=== PATIENT | male | born 1990 | race Caucasian/White ===

== ENCOUNTER 2017-10-31 12:43 | Emergency (ER) | payer MEDICARE, MEDICAID ==
[2017-10-31] MEDS ORDERED: Ketorolac Tromethamine 30 MG/ML VIAL ONE (13:46)
--- NOTE | 2017-10-31 14:05 | RAD ---
LEFT KNEE 4 VIEWS: Date: 10/31/17 HISTORY: Injury. Left knee pain. FINDINGS/IMPRESSION: No acute fracture or dislocation is identified. No joint effusion is seen. POS: [facility]
== END 2017-10-31 14:19 | disposition home or self-care (01) ==
LOC: ERS 12:43
DX: M25.562 Pain in left knee (principal); F84.5 Asperger's syndrome; F17.210 Nicotine dependence, cigarettes, uncomplicated
CPT/HCPCS: 96372; J1885

== ENCOUNTER 2018-03-04 18:22 | Emergency (ER) | payer MEDICARE, MEDICAID ==
[2018-03-04] MEDS ORDERED: Ibuprofen 800 MG TAB ONE (18:49)
[2018-03-04] MEDS ORDERED: Adacel (T-DAP) 0.5 ML VIAL ONE (18:49)
[2018-03-04] MEDS ORDERED: HYDROcodone/Acetaminophen 5/325 mg Tablet ONE (18:49)
--- NOTE | 2018-03-04 18:59 | RAD ---
3 VIEWS RIGHT HAND: Date: 03/04/18 COMPARISON: None. HISTORY: Dog bite to the right hand and forearm. FINDINGS: Three views of the right hand show no evidence of acute fracture or dislocation. No radiopaque foreig n body is seen. No degenerative changes are present. IMPRESSION: No evidence of acute osseous abnormality. POS: [facility]
[2018-03-04] MEDS ORDERED: Bacitracin Zinc 1 Packet ONE (19:33)
[2018-03-04] MEDS ORDERED: Amoxicillin/Potassium Clav 875 MG TAB ONE (19:34)
== END 2018-03-04 19:45 | disposition home or self-care (01) ==
LOC: SCSER 18:22
DX: S41.151A Open bite of right upper arm, initial encounter (principal); F31.9 Bipolar disorder, unspecified; W54.0XXA Bitten by dog, initial encounter
CPT/HCPCS: 90471; 90715

== ENCOUNTER 2018-03-05 21:13 | Emergency (ER) | payer MEDICARE, OTHER ==
[2018-03-05] MEDS ORDERED: Ketorolac Tromethamine 60 MG/2 ML VIAL ONE (21:58)
[2018-03-05] MEDS ORDERED: Bacitracin Zinc 1 Packet ONE (22:28)
== END 2018-03-05 22:41 | disposition home or self-care (01) ==
LOC: ERS 21:13
DX: S61.250D Open bite of right index finger without damage to nail, subsequent encounter (principal); F31.9 Bipolar disorder, unspecified; W54.0XXD Bitten by dog, subsequent encounter
CPT/HCPCS: 96372; J1885

== ENCOUNTER 2018-07-30 11:39 | Emergency (ER) | payer MEDICARE, MEDICAID ==
--- NOTE | 2018-07-30 12:53 | RAD ---
THREE VIEWS LEFT HAND: Comparison: None. History: Left hand pain. FINDINGS: Three views of the left hand shows no evidence of acute fracture or dislocation. No degenerative jessica ges are seen. IMPRESSION: No evidence of acute osseous abnormality. POS: [facility]
--- NOTE | 2018-07-30 13:28 | CT ---
CT OF HEAD NONCONTRAST: INDICATION: Trauma. COMPARISON: 05/19/2008. FINDINGS: There is no evidence of ventriculomegaly, mass effect, or midline shift. There is ramone cisterna magn a with bilateral mastoid opacification. IMPRESSION: 1. No acute intracranial hemorrhage or mass effect. 2. Bilateral mastoid opacification. POS: [facility]
== END 2018-07-30 12:19 | disposition home or self-care (01) ==
LOC: ERS 11:39
DX: S60.512A Abrasion of left hand, initial encounter (principal); F31.9 Bipolar disorder, unspecified; F17.210 Nicotine dependence, cigarettes, uncomplicated; Z71.6 Tobacco abuse counseling; Y08.09XA Assault by strike by other specified type of sport equipment, initial encounter; Y93.67 Activity, basketball; Y99.8 Other external cause status
CPT/HCPCS: 70450; 99406

== ENCOUNTER 2018-09-11 08:38 | Emergency (ER) | payer MEDICARE, MEDICAID ==
[2018-09-11 09:11] LABS: #Eosinphils 0.2 thou/uL (0.0-0.7); #Lymphocytes 1.7 thou/uL (1.20-3.40); #Monocytes 0.7 thou/uL (0.11-0.59); #Neutrophils 3.7 thou/uL (1.40-6.50); %Basophils 0.6 % (0.0-1.0); %Eosinophils 2.5 % (0.0-10.0); %Lymphocytes 26.8 % (21.0-51.0); %Monocytes 10.5 % (0.0-10.0); %Neutrophils 59.7 % (42.0-75.0); Hemoglobin 16.1 g/dL (14.0-18.0); Mean Corpuscular HGB CONC 31.7 g/dL (32.0-36.0); Mean Corpuscular Hemoglobin 29.1 pg (27.0-31.0); Mean Corpuscular Volume 91.5 fL (78.0-98.0); Mean Platelet Volume 8.1 fL (7.4-10.4); Platelet Count 210 thou/uL (130-400); RBC Distribution Width 12.5 % (11.5-14.5); Red Blood Cell (RBC) Count 5.55 mill/uL (4.70-6.10); White Blood Cell (WBC) Count 6.2 thou/uL (4.8-10.8)
[2018-09-11 09:32] LABS: ALT (SGPT) 36 U/L (8-55); AST (SGOT) 28 U/L (5-34); Albumin 4.1 g/dL (3.5-5.0); Alkaline Phosphatase 53 U/L (40-150); Anion Gap 11 mmol/L (10-20); BUN (Urea Nitrogen) 15 mg/dL (8.9-20.6); Calc. Creatinine Clearance 0 mL/min (70-130); Calcium 9.4 mg/dL (7.8-10.44); Carbon Dioxide 27 mmol/L (22-29); Chloride 104 mmol/L (98-107); Estimated GFR-MDRD Greater than 90; Globulin 2.7 g/dL (2.4-3.5); Glucose 89 mg/dL (70-105); Potassium 4.1 mmol/L (3.5-5.1); Protein, Total 6.8 g/dL (6.0-8.3); Sodium 138 mmol/L (136-145)
--- NOTE | 2018-09-11 10:02 | CT ---
HEAD CT NONCONTRAST: Date: 09/11/18 INDICATION: Bilateral otalgia. FINDINGS: There is no evidence of intracranial hemorrhage, mass effect, midline shift, or ventriculomegaly. The re is opacification of the mastoid air cells bilaterally. Bilateral middle ear opacification is also present. IMPRESSION: 1. No acute intracranial abnormality. 2. Persistent bilateral otomastoid opacification. Given patient's symptoms and persistence of findin gs, recommend ENT consultation for further characterization. POS: [facility]
== END 2018-09-11 09:52 | disposition left against medical advice (07) ==
LOC: ERS 08:38
DX: H92.03 Otalgia, bilateral (principal); F31.9 Bipolar disorder, unspecified; F17.210 Nicotine dependence, cigarettes, uncomplicated
CPT/HCPCS: 36415; 70450; 80053; 84484; 85025

== ENCOUNTER 2021-08-30 08:10 | Emergency (ER) | payer MEDICARE, MEDICAID ==
[2021-08-30] MEDS ORDERED: Ondansetron ODT 4 MG TAB ONE (09:12)
[2021-08-30] MEDS ORDERED: Ketorolac Tromethamine 30 MG/ML VIAL ONE (09:12)
== END 2021-08-30 09:57 | disposition home or self-care (01) ==
LOC: ERS 08:10
DX: M25.511 Pain in right shoulder (principal); F17.210 Nicotine dependence, cigarettes, uncomplicated
CPT/HCPCS: 96372; J1885; Q0162

== ENCOUNTER 2022-01-09 22:03 | Emergency (ER) | payer MEDICARE, MEDICAID ==
[2022-01-09] MEDS ORDERED: Xylocaine 1% w/ Epi 1:100K 10 ML VIAL ONE (22:20)
[2022-01-09] MEDS ORDERED: Triple Antibiotic Oint 1 GM Packet TOP SCH (22:45)
== END 2022-01-09 23:10 | disposition home or self-care (01) ==
LOC: ERS 22:03
DX: S51.811A Laceration without foreign body of right forearm, initial encounter (principal); F17.210 Nicotine dependence, cigarettes, uncomplicated; W26.0XXA Contact with knife, initial encounter
CPT/HCPCS: 12001